=== PATIENT | male | born 1960 | race Caucasian/White ===

== ENCOUNTER → 2016-07-11 | Outpatient (CLI) | payer MEDICARE, MEDICAID ==
[~2016-07-11] MED LIST: BACTRIM DS 8001 TAB PO; CIPRO 500MG TA500 MG PO; DESYREL GENERIC50 MG PO; DIAZEPAM10 M1 PO; FUROSEMIDE 40MG40 M1 PO; HYDROCODONE1 TABLET PO; LOMOTIL 2.5MG.2.5 MG PO; MICRO-K10 MEQ PO; MORPHINE PUMP SC; NEXIUM40 MG PO; OXYCONTIN 20MG.20 MG PO; PERCOCET 10 MG1 EACH PO; PERCOCET 325 MG1 TA3 PO; PHENERGAN 25MG.25 M1 PO; POTASSIUM CHLO10 ME3 PO; POTASSIUM CHLO20 ME2 PO; TRAZADONE HYDR100 MG PO; ZITHROMAX Z-PA250 M1 PO; ZOFRAN ODT8 MG PO
[2016-07-11 13:54] LABS: HEMOGLOBIN 15.9 g/dL (14.1-18.0); LYMPH # 2.2 K/mm3 (0.7-4.5); LYMPH % 25.1 % (10-50)
[2016-07-11 14:03] LABS: BUN 18 mg/dL (7-18); PROSTATE-SPECIFIC AG SCREEEN 0.3 ng/mL (0.0-4.0)
[2016-07-11 14:31] LABS: GFR (ESTIMATED) 63 ML/MIN (>60)
[2016-07-12 09:38] LABS: HBsAg Screen Negative (Negative); Hep A Ab, IgM Negative (Negative); Hep B Core Ab, IgM Negative (Negative); Hep C Virus Ab <0.1 (0.0-0.9)
== END ==
LOC: LAB 13:26
PROVIDERS: Nurse Practitioner Family
DX: I10 Essential (primary) hypertension (principal); G47.00 Insomnia, unspecified; Z00.00 Encounter for general adult medical examination without abnormal findings; Z12.5 Encounter for screening for malignant neoplasm of prostate
CPT/HCPCS: G0103

== ENCOUNTER → 2017-01-17 | Outpatient (CLI) | payer MEDICARE, MEDICAID ==
--- NOTE | 2017-01-17 14:33 | RADIOLOGY REPORT PS360 ---
CT HEAD W/O CONTRAST HISTORY: HTN, LT ARM NUMBNESS,PARALYSIS, TOB USE ORDERING PHYSICIAN: LUCIANO JENKINS MD PATIENT AGE: 56 years COMPARISON: None TECHNIQUE: Axial images obtained without contrast. Brain and bone windows reviewed. FINDINGS: No midline shift, mass effect, intracranial hemorrhage, hydrocephalus, or extra-axial fluid collection is evident. The calvarium has an unremarkable appearance. No mastoid effusion. There is a small air-fluid level in the right maxillary sinus.. IMPRESSION: Negative CT head without contrast. No acute finding.
--- NOTE | 2017-01-20 20:32 | RADIOLOGY REPORT PS360 ---
PROCEDURE: 2-D M-mode and color Doppler study INDICATIONS FOR THE TEST: Chest pain + COPD Heart Murmur Tobacco Smoking Palpitations Fatigue Syncope Edema Hypertension Diabetes Mellitus Rheumatic Fever SOB+TIJERINA Obesity Hyperlipidemia Family History HD Additional History PATIENT INFORMATION HEIGHT: 68 WEIGHT:196 GENDER: Male B/P: 2-D/M-MODE INTERPRETATION: 2-D MEASUREMENTS OBSERVED VALUES IN CMS Right Ventricular Dimension (RVDd) 1.9 Interventricular Septum (Thickness)(IVsd) 1.1 Left Ventricular Internal Dimensions(LVIDd) 4.4 Left Ventricular Posterior Wall (Thickness)(LVPWd) 1.1 Aortic Root 3.2 Aortic Cusp Separation 3.9 Left Atrial Dimensions (LAD) 2.0 2D 1. Left atrium is qualitatively mildly enlarged, left ventricle is normal size, left ventricle wall thickness is upper limit of normal, there is preserved left ventricle systolic function, visually estimated ejection fraction 55% with no obvious regional wall motion abnormality. 2. The right atrium and right ventricle are normal size and contractility. 3. The aortic valve is minimally thickened and fibrosed. 4. The mitral and tricuspid valve leaflets are minimally thickened. 5. The pulmonic valve is poorly visualized. 6. No significant pericardial effusion noted. DOPPLER INTERROGATION: Doppler interrogation of the aortic, mitral and tricuspid valvular presence of mild mitral and tricuspid regurgitation, tricuspid regurgitant jet velocity is insufficient for calculation of the right ventricular systolic pressure, diastolic parameters are inconclusive. CONCLUSION: 1. Mildly enlarged left atrium, normal left ventricular size, visually estimated ejection fraction 55% with no obvious regional wall motion abnormality. Diastolic parameters are inconclusive. 2. Mild mitral and tricuspid regurgitation. 3. No significant pericardial effusion noted.
== END ==
LOC: RT 13:00
DX: R06.09 Other forms of dyspnea (principal); I10 Essential (primary) hypertension; R20.2 Paresthesia of skin; Z72.0 Tobacco use